=== PATIENT | female | born 1990 | race Caucasian/White ===

== ENCOUNTER 2017-06-17 09:27 | Emergency (ER) | payer OTHER ==
[2017-06-17 09:57] VITALS: BMI 49.2
--- NOTE | 2017-06-17 12:34 | OBHP ---
Datetime: 06/17/2017 10:00 IP Adm Impression: Term, intrauterine IP Admit Plan: Discharge home Admit Comment, IP Provider: 26 yo at 38.4 wk gestational age, confirmed by u/s at 15w6d pres ented to [facility] due to contractions since 299. She rates the pain at 10/10, and states that contractio ns occur every 5-10 min. Reports good movement, denies vaginal bleeding or loss of fluid. Last sexual activity 3-4 days ago. Past OBhx: 1 NVD @ 38 weeks in Aug 2015. Prior to that, 1 SAB at 7 and 12 weeks; pt is unable to r ecall the years this occured. 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 Denies tobacco, alcohol, drug use Meds: vitamins Allergies: NKDA care: Brannon Serra Last visit was 1 week ago, 06/10. Was supposed to have visit today at 06/17 at 8:45 am but she came here. ROS: denies chest pain, sob, nausea, vomiting, burning with urination, headache, dizziness PE: BP: 123/72 FHR: 150 Gen: AAOx3 CV: S1,S2 present, RRR Resp: clear to auscultation bilaterally, normal resp effort Abd: +BS, gravid Extremities: bilateral nonpitting edema to midcalf Pelvic exam: cervix 1cm dilated, 50% effaced. A: 26 yo at 38.4 weeks, not in active labor. P: observe on monitor for regular contractions; then discharge home Case discussed with attending Dr. Quintana. [email or web address] The patient was seen with the resident I agree with patient reports occasional contractions patien t most likely latent labor will discharge home later precautions movement counts patient follow -up with PMD Abdomen - PN: Normal Back - PN: Normal Breast - PN: Not Done Lungs - PN: Normal Heart - PN: Normal Thyroid - PN: Not Done Neurologic - PN: Normal HEENT - PN: Normal General - PN: Normal FHR - Baseline A Provider: 150 Gestation - Est Wks by US: 38.4 EGA AdmitDate IP: 38.4 Vital Signs Provider: Reviewed IP Chief Complaint: Uterine contractions NICHD Variability Prov Fetus A: Moderate 6-25bpm NICHD Accel Fetus A IP Provider: [id number] FHR Category Provider Fetus A: Category I Dilatation, Provider: 1 Effacement, Provider: 50 Station, Provider: -2 Genitourinary Exam: Normal
[2017-06-17 16:43] VITALS: BP 141/98; PULSE 92; RESP 20; TEMP 98.4; O2SAT 99
== END 2017-06-17 11:45 | disposition home or self-care (01) ==
LOC: H.EROB2 09:27
DX: O47.1 False labor at or after 37 completed weeks of gestation (principal); Z3A.38 38 weeks gestation of pregnancy

== ENCOUNTER 2017-06-17 17:44 | Inpatient (IN) | payer OTHER ==
[2017-06-17 09:57] VITALS: BMI 49.2
[2017-06-17] MEDS ORDERED: Lactated Ringer's 1,000 ML IV SCH ×2 (18:15)
[2017-06-17] MEDS ORDERED: Oxytocin 30 units/LR 500ML 30 U/500 ML BAG IV ONE (18:21)
[2017-06-17] MEDS ORDERED: Lidocaine 1% Inj (20ml) ONE (18:21)
[2017-06-17] MEDS ORDERED: Benzocaine/Menthol SPRAY TOP PRN (18:31)
[2017-06-17] MEDS ORDERED: Nalbuphine 20 mg/ml Inj (1 ml) IVP PRN (18:32)
[2017-06-17 18:44] LABS: BASO # 0.1 K/uL (0.0-0.2); BASO % 0.5 % (0.0-2.0); EOS # 0.1 K/uL (0.0-0.7); EOS % 0.4 % (0.0-4.0); HEMATOCRIT 38.8 % (34.0-47.0); LYMPH # 3.1 K/uL (1.0-4.3); MEAN CELL VOLUME 88.9 fl (81.0-99.0); MEAN CORPUSCULAR HEMOGLOBIN 29.9 pg (27.0-31.0); MEAN CORPUSCULAR HGB CONC 33.6 g/dL (33.0-37.0); MEAN PLATELET VOLUME 10.1 fl (7.2-11.7); MONO # 1.3 K/uL (0.0-0.8); NEUT # 13.9 K/uL (1.8-7.0); NEUT % 75.1 % (50.0-75.0); RED CELL DISTRIBUTION WIDTH 14.4 % (11.5-14.5); WHITE BLOOD COUNT 18.5 K/uL (4.8-10.8)
--- NOTE | 2017-06-17 19:12 | OBADHP ---
Datetime: 06/17/2017 18:17 Dilatation, Provider: 6 Effacement, Provider: 100 EGA AdmitDate IP: 38.4 Datetime: 06/17/2017 18:10 Admit Comment, IP Provider: Pt was seen by me (resident) this morning; she had records at t he time. Does not have her records at this time. When seen, pt was 1 cm dilated and 50% effa whitney. 26 yo at 38.4 wk gestational age, confirmed by u/s at 15w6d presented to [facility] due to incre ased pain and frequency of contractions since discharge earlier this morning. She rates the pain at 1 0/10, and states that contractions occur every 5 min. Reports good movement, denies vaginal ble eding or loss of fluid. Last sexual activity 3-4 days ago. Past OBhx: 1 NVD @ 38 weeks in Aug 2015. Prior to that, 1 SAB at 7 and 12 weeks; pt is unable to r ecall the years this occured. 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 Denies tobacco, alcohol, drug use Meds: vitamins Allergies: NKDA care: Brannon Serra Last visit was 1 week ago, 06/10. Was supposed to have visit today at 06/17 at 8:45 am but came to [facility] this morning. Pt states her will bring records. ROS: denied chest pain, sob, nausea, vomiting, burning with urination, headache, dizziness PE: BP: 114/85 FHR: 150 Gen: AAOx3 CV: S1,S2 present, RRR Resp: clear to auscultation bilaterally, normal resp effort Abd: +BS, gravid Extremities: bilateral nonpitting edema to midcalf Pelvic exam: cervix 6cm dilated, 90% effaced. Assessment: 26 yo at 38.4 weeks, in active labor. Plan: Admit to labor and delivery Discussed with Dr. Luz cabrerapgy1 OB Hospitalist note: This pt was seen and examined by me. Agree with above note. MAHNDO Pelvic Type - PN: Adequate Extremities - PN: Normal Abdomen - PN: Normal Back - PN: Normal Lungs - PN: Normal Heart - PN: Normal Thyroid - PN: Not Done Neurologic - PN: Normal HEENT - PN: Normal General - PN: Normal Presentation-Admit: Vertex IP Fetus A Comments: SONOGRAM CEPHALIC FHR - Baseline A Provider: 150 Contraction Comments Provider: + Comments, ACOG Physical Exam: obese Inner right thigh scar Gestation - Est Wks by US: 38.4 IP Hx Assessment: UNDOCUMENTED IP Chief Complaint: Uterine contractions NICHD Variability Prov Fetus A: Moderate 6-25bpm NICHD Accel Fetus A IP Provider: FHR Category Provider Fetus A: Category I NICHD Decel Fetus A IP Provider: None Genitourinary Exam: Normal IP Adm Impression: Term, intrauterine ; Active labor; Intact Membranes IP Admit Plan: Admit to unit; Initiate labor protocol Datetime: 06/17/2017 10:00 Breast - PN: Not Done Vital Signs Provider: Reviewed Station, Provider: -2
[2017-06-17 19:13] VITALS: O2SAT 99
--- NOTE | 2017-06-17 19:14 | OBADHP ---
Datetime: 06/17/2017 18:17 Admit Comment, IP Provider: pt was seen by me (resident) this morning; she had records at t he time. Does not have her records at this time. When seen, pt was 1 cm dilated and 50% effa whitney. 26 yo at 38.4 wk gestational age, confirmed by u/s at 15w6d presented to [facility] due to incre ased pain and frequency of contractions since discharge earlier this morning. She rates the pain at 1 0/10, and states that contractions occur every 5 min. Reports good movement, denies vaginal ble eding or loss of fluid. Last sexual activity 3-4 days ago. Past OBhx: 1 NVD @ 38 weeks in Aug 2015. Prior to that, 1 SAB at 7 and 12 weeks; pt is unable to r ecall the years this occured. 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 Denies tobacco, alcohol, drug use Meds: vitamins Allergies: NKDA care: Brannon Serra Last visit was 1 week ago, 06/10. Was supposed to have visit today at 06/17 at 8:45 am but came to [facility] this morning. Pt states her will bring records for confirmation. ROS: denied chest pain, sob, nausea, vomiting, burning with urination, headache, dizziness PE: BP: 114/85 FHR: 150 Gen: AAOx3 CV: S1,S2 present, RRR Resp: clear to auscultation bilaterally, normal resp effort Abd: +BS, gravid Extremities: bilateral nonpitting edema to midcalf Pelvic exam: cervix 6cm dilated, 90% effaced. Assessment: 26 yo at 38.4 weeks, in active labor. Plan: initiate labor protocol; expectant vaginal delivery Discussed with Dr. Luz cabrerapgy1 OB Hospitalist note: This pt was seen and examined by me. Agree with above note. ABEL IP Hx Assessment: UNDOCUMENTED EGA AdmitDate IP: 38.4 IP Adm Impression: Term, intrauterine ; Active labor IP Admit Plan: Admit to unit; Initiate labor protocol
--- NOTE | 2017-06-17 19:18 | OBDS ---
DELIVERY PERSONNEL Delivery Doctor: Kaye Escobar DO Director Outcomes: SLatestaRN/FNarcisoRN/MBorreoRN/MlamelaRN MATERNAL INFORMATION Delivery Anesthesia: Local Medications in Delivery: pitocin 20 units in LR 1 L Estimated Blood Loss (ml): 200 Placenta Cultured: No Maternal Complications: None Provider Comments: Over intact perinuem, of live . She was in pain and not cooperative i n positioning/screaming with each CTX. Head was delivered. McrRobert's and suprapbuic pressure done . With next push, right posterior shoulder was delivered. Left shoulder was under symphysis pubis. One loose nuchal cord noted and reduced. was crying sponatneously. Placenta was deliverd in tact spontaneously. Skin to skin was done btwn mother and infant. PEDS present and noted good ROM o f extremities. Repair as above. EBL 200cc She remained stable LABOR SUMMARY EDC: 06/27/2017 00:00 No. Babies in Womb: 1 Attempted: No Labor Anesthesia: None LABOR INFORMATION Onset of Labor: 11/15/2016 03:00 Complete Dilatation: 06/17/2017 18:20 Oxytocin: N/A Group B Beta Strep: Negative Antibiotics # of Doses: n/a Antibiotics Time of Last Dose: n/a Steroids Given: None MEMBRANES Membranes Rupture Method: Spontaneous Rupture of Membranes: 06/17/2017 18:20 Length of Rupture (hrs): 0.08 Amniotic Fluid Color: Clear Amniotic Fluid Amount: None Amniotic Fluid Odor: Normal STAGES OF LABOR Stage 1 hrs: 5151 Stage 1 min: 20 Stage 2 hrs: 0 Stage 2 min: 5 Stage 3 hrs: 0 Stage 3 min: 15 Total Time in Labor hrs: 5151 Total Time in Labor min: 40 VAGINAL DELIVERY Episiotomy: None Laceration Extension: First Degree Laceration Type: Perineal Laceration Repair: Yes Laceration Repair Note: 1% Lidocaine (3-4cc) given and IV Nubain ... her cousin Veronica from [facility] was at her side translating...repaired with 2.0 Vicryl Rapide suture. Initial Vag Sponge Count: laps=5 Final Vag Sponge Count: laps=5 Initial Vag Sharps Count: 1 Final Vag Sharps Count: 1 Sharps Count Correct: Yes Count Comment: count correct and acknowledge by Dr Escobar BABY A INFORMATION Infant Delivery Date/Time: 06/17/2017 18:25 Method of Delivery: Vaginal Born in Route : No : N/A Forceps: N/A Vacuum Extraction: N/A Shoulder Dystocia : No SHOULDER DYSTOCIA BABY A Delivery Date/Time: 06/17/2017 18:25 PRESENTATION/POSITION BABY A Presentation: Cephalic Cephalic Presentation: Vertex Breech Presentation: N/A PLACENTA INFORMATION BABY A Placenta Delivery Time : 06/17/2017 18:40 Placenta Method of Delivery: Spontaneous Placenta Status: Delivered SCORES BABY A Heart Rate 1 min: >100 bpm Resp Effort 1 min: Good Cry Reflex Irritability 1 min: Cough or Sneeze or Pulls Away Muscle Tone 1 min: Active Motion Color 1 min: Body Grandin, Extremities Blue Resuscitation Effort 1 min: Tactile Stimulation SCORE 1 MIN: 9 Heart Rate 5 min: >100 bpm Resp Effort 5 min: Good Cry Reflex Irritability 5 min: Cough or Sneeze or Pulls Away Muscle Tone 5 min: Active Motion Color 5 min: Body Grandin, Extremities Blue Resuscitation Effort 5 min: N/A SCORE 5 MIN: 9 INFANT INFORMATION BABY A Gestational Age at Delivery: 38.4 Gestational Status: Term Outcome : Liveborn Condition : Stable Infant Sex: Female IDENTIFICATION/MEDS BABY A ID Band Number: [id number] ID Band Location: Left Leg; Left Arm Vitamin K Given : Not Given Erythromycin Given: Not Given WEIGHT/LENGTH BABY A Birthweight (gms): 3620 Infant Weight (lb): 8 Infant Weight (oz): 0 CORD INFORMATION BABY A No. Cord Vessels: 3 Nuchal Cord : Around Neck x1, Tight True Knot: n/a Infant Cord pH Baby Arterial: n/a Cord pH Baby Venous: n/a Cord Blood Taken: Yes Banking/Donate Info: n/a Infant Suction: Mouth; Nose ASSESSMENT BABY A Infant Complications: None Physical Findings at Delivery: Other Physical Findings Other: cyanosis of face and hands due to tight nuchal cord. Infant Respirations: Appears Normal Inseam Leveler/ALS Called : No Care By: Dr Motta/Mani/Alysha Transferred To: Remains with Mother
[2017-06-17] MEDS: Oxycodone/Acetaminophen 5/325 mg Tab PO PRN (19:24)
[2017-06-18 05:30] LABS: HEMATOCRIT 33.4 % (34.0-47.0); MEAN CORPUSCULAR HEMOGLOBIN 30.2 pg (27.0-31.0); MEAN CORPUSCULAR HGB CONC 34.3 g/dL (33.0-37.0); RED CELL DISTRIBUTION WIDTH 14.1 % (11.5-14.5); WHITE BLOOD COUNT 14.6 K/uL (4.8-10.8)
--- NOTE | 2017-06-18 13:54 | OBPPN ---
Datetime: 06/18/2017 06:47 PP Pain Prov: Within normal limits PP Nausea Prov: Denies PP Flatus Prov: No PP BM Prov: No PP Breasts Prov: Normal PP Heart Prov: Normal PP Lungs Prov: Normal PP Abdomen/Uterus Prov: Normal PP Lochia Prov: Normal PP Vulva/Perineum Prov: Normal PP CVA Tenderness Prov: Normal PP Extremities Prov: Normal PP Progress Prov: Normal PP Impression Prov: Normal progression PP Plan Prov: Continue present management PP Progress Note Prov: PPD #1 S: 26 y/o now seen and examined at bedside. No acute overnight events. Pt denies pelvic pain controlled with pain meds. OOB/Ambulation well without dizziness. Breast/Bottle feeding without diffi culty. Tolerating PO diet well. Lochia is similar to menses volume. Voiding freely with no blood note d. Denies BM, denies Gas per rectum. Denies fever/chills, diarrhea, [place]/vomiting, CP/SOB, lighthea dedness, calf pain. O: BP 133/73, HR 88, T 98.1 ( No hypertensive episodes) H/H () 11.5/33.4 Physical exam: General: A_O HEENT: White Sclera, pink conjunctiva, oral mucosa moist Breast: enjorged/non tender/no lesions CVS: RRR, nrml S1, S2, no murmurs Lungs: Clear to auscultation BL Abdomen: non distended, +BS, firm fundus @ umbilical level. Soft, appropriate TTP Neuro/Psych: AAO x3, preserved affect and mood Assessment: 26 y/o now s/p delivery on 06/17 18:25 with 1st degree perineal laceration. Pt afebrile on day1, tolerating pain with meds, tolerating oral intake, adequate urine output. Doing well on PPD# 1. care records received post as patient did not have them with her. PNC labs reviewe d and placed in chart. Plan: Regular Diet in AM OOB as tolerated Percocet 5/325mg 1-2 tablets po q6 for mod/sev pain Ibuprofen 600mg 1 tab q6 vs Tyelenol 650mg 1 tab for mild pain Encourage and ambulation Simethicone 80mg BID for gas Anticipated D/C to home on 06/19 Attending addendum, I saw and examined the patient at bedside this morning. I reviewed the resident note above and agr ee with findings and management plan. Patient PPD1, doing well. Tdap vaccine ordered, declined flu va ccine. BP 134/80, no signs or sx of PEC, follow closely. Undecided for contraception. Anticipate DC home tomorrow. IP PP Procedures: None Vital Signs Provider PP: Reviewed; Within Normal Limits
[2017-06-18] MEDS ORDERED: Oxycodone/Acetaminophen 5/325 mg Tab PO STA (14:16)
[2017-06-18] MEDS: Oxycodone/Acetaminophen 5/325 mg Tab PO PRN (21:16)
--- NOTE | 2017-06-19 10:23 | OBDCSUM ---
Datetime: 06/19/2017 07:27 Discharged to, Provider: Home Follow up at, Provider: Brannon Serra Disch Instr Activity: Normal activity; May be up to bathroom; May be up for meals; May Shower Disch Instr Diet: Regular Discharge Instructions, Provider: Routine instructions given Discharge Diagnosis, Provider: Term Delivered Follow up in weeks, Provider: 4-6 weeks Contraception discussed, Prov: Yes Disch Activity Restrictions: No sexual activity; Nothing in vagina - Montz, tampons, douche Discharge Comment, Provider: PPD #2 S: 26 y/o now seen and examined at bedside. No acute overnight events. Pt denies pelvic pain controlled with pain meds. OOB/Ambulation well without dizziness. Breast/Bottle feeding without diffi culty. Tolerating PO diet well. Lochia is similar to menses volume. Voiding freely with no blood note d. Denies BM, + Gas per rectum. Denies fever/chills, diarrhea, nausea/vomiting, CP/SOB, lightheadedne ss, calf pain. Denies headache, dizziness, epigastric pain. O: BP 133/867, HR 96, Tmax 99.3 H/H () 11.5/33.4 (BP have been in the high 130's systolic, 80's diastolic) Physical exam: General: A_O HEENT: White Sclera, pink conjunctiva, oral mucosa moist Breast: enjorged/non tender/no lesions CVS: RRR, nrml S1, S2, no murmurs Lungs: Clear to auscultation BL Abdomen: non distended, +BS, firm fundus @ umbilical level. Soft, appropriate TTP Neuro/Psych: AAO x3, preserved affect and mood Assessment: 26 y/o now s/p delivery on 06/17 18:25 with 1st degree perineal laceration. Pt afebrile on day1, tolerating pain with meds, tolerating oral intake, adequate urine output. Doing well on PPD# 2. BP borderline elevated but pt has no Preeclamptia signs or symptoms. care records receive d post as patient did not have them with her. PNC labs reviewed and placed in chart. Toleratin g diet well. Plan: Monitor BP closely OOB as tolerated Percocet 5/325mg 1-2 tablets po q6 for mod/sev pain Ibuprofen 600mg 1 tab switched to Tyelenol 650mg 1 tab for mild pain given elevated BP's Encourage and ambulation Senakot 17mg QHS Anticipated D/C to home on 06/19 Receiving TDAP today at 9am; declined flu vaccine Chandana Schrader, PGY1 Discharge summary-[facility] DOA: 06/17 EGA: 38.4wks Diagnosis: risk factors: none Summary of : now , 1 prior NVD, 2SAB L_D Summary: DOD: 06/17/17 at 18:25 NB: Female Weight:3620 : 9,9 Post Summary: No complications during post . BP was occasionally borderline elevated in the 130's systolic but pt did not have PEC signs or symptoms. TDAP to be given prior to D/C. Pt declined Flu vaccine. CBC post : 06/28/33.4 Discharge Date: 06/19 Discharge Instructions: 1.Encourage 2.PNV 1tab po qday 3.Tylenol 650mg q6 prn for mild-mod pain 4.Ambulatory as tolerated; nothing per vagina, ER precautions given 5.F/U at [place] within 4-6 weeks, 2-3 days for baby Contraception after Delivery: Undecided Datetime: 06/17/2017 11:33 Discharge Instructions, Provider: Routine instructions given Contraception discussed, Prov: No
--- NOTE | 2017-06-19 10:23 | OBPPN ---
Datetime: 06/19/2017 07:24 PP Pain Prov: Within normal limits PP Nausea Prov: Denies PP Flatus Prov: Yes PP BM Prov: No PP Breasts Prov: Normal PP Heart Prov: Normal PP Lungs Prov: Normal PP Abdomen/Uterus Prov: Normal PP Lochia Prov: Normal PP Vulva/Perineum Prov: Normal PP CVA Tenderness Prov: Normal PP Extremities Prov: Normal PP Impression Prov: Normal progression PP Plan Prov: Continue present management PP Progress Note Prov: PPD #2 S: 26 y/o now seen and examined at bedside. No acute overnight events. Pt denies pelvic pain controlled with pain meds. OOB/Ambulation well without dizziness. Breast/Bottle feeding without diffi culty. Tolerating PO diet well. Lochia is similar to menses volume. Voiding freely with no blood note d. Denies BM, + Gas per rectum. Denies fever/chills, diarrhea, nausea/vomiting, CP/SOB, lightheadedne ss, calf pain. Denies headache, dizziness, epigastric pain. O: BP 133/867, HR 96, Tmax 99.3 H/H () 11.5/33.4 (BP have been in the high 130's systolic, 80's diastolic) Physical exam: General: A_O HEENT: White Sclera, pink conjunctiva, oral mucosa moist Breast: enjorged/non tender/no lesions CVS: RRR, nrml S1, S2, no murmurs Lungs: Clear to auscultation BL Abdomen: non distended, +BS, firm fundus @ umbilical level. Soft, appropriate TTP Neuro/Psych: AAO x3, preserved affect and mood Assessment: 26 y/o now s/p delivery on 06/17 18:25 with 1st degree perineal laceration. Pt afebrile on day1, tolerating pain with meds, tolerating oral intake, adequate urine output. Doing well on PPD# 2. BP borderline elevated but pt has no Preeclamptia signs or symptoms. care records receive d post as patient did not have them with her. PNC labs reviewed and placed in chart. Toleratin g diet well. Plan: Monitor BP closely OOB as tolerated Percocet 5/325mg 1-2 tablets po q6 for mod/sev pain Ibuprofen 600mg 1 tab switched to Tyelenol 650mg 1 tab for mild pain given elevated BP's Encourage and ambulation Anticipated D/C to home on 06/19 Receiving TDAP today at 9am; declined flu vaccine Chandana Schrader, PGY1 Addendum by Dr. Roblero: patient evaluated independently and I agree with the above. Patient is PPD #2, patient for discharge Vital Signs Provider PP: Reviewed; Within Normal Limits
[2017-06-19 18:49] VITALS: BP 130/74; PULSE 107; RESP 20; TEMP 98.7
== END 2017-06-19 13:30 | disposition home or self-care (01) | DRG 373 ==
LOC: H.EROB2 17:44 → H.L&D 18:05 → H.OB/GYN 21:25
PROVIDERS: ADMIT Obstetrics & Gynecology; ATTEND Obstetrics & Gynecology
PROC: 10E0XZZ Delivery of Products of Conception, External Approach (ICD-10-PCS; principal; 2017-06-17)
PROC: 0HQ9XZZ Repair Perineum Skin, External Approach (ICD-10-PCS; 2017-06-17)
PROC: 4A1HXCZ Monitoring of Products of Conception, Cardiac Rate, External Approach (ICD-10-PCS; 2017-06-17)
DX: O62.3 Precipitate labor (principal); J45.909 Unspecified asthma, uncomplicated; Z37.0 Single live birth; O99.52 Diseases of the respiratory system complicating childbirth; Z3A.38 38 weeks gestation of pregnancy; O70.0 First degree perineal laceration during delivery; O69.1XX0 Labor and delivery complicated by cord around neck, with compression, not applicable or unspecified